=== PATIENT | male | born 1965 ===

== ENCOUNTER → 2019-01-16 21:03 | Outpatient (REF) | payer OTHER, SELFPAY ==
[2019-01-16 21:31] LABS: Add Manual Diff / Slide Review NO; Basophils Absolute Auto 0 /uL (0-100); Basophils Percent Auto 0.6 % (0-2); Eosinophils Absolute Auto 200 /uL (0-450); Eosinophils Percent Auto 3.5 % (2-4); Hematocrit 48.6 % (41-53); Hemoglobin 16.1 g/dL (13.5-17.5); Lymphocytes Absolute Auto 1100 /uL (1100-4500); Lymphocytes Percent Auto 22.7 % (25-40); Mean Corpuscular HGB Conc 33.2 % (30-36); Mean Corpuscular Hemoglobin 31.2 PG (26-34); Monocytes Absolute Auto 900 /uL (0-900); Monocytes Percent Auto 18.5 % (3-14); Neutrophils Absolute Auto 2700 /uL (1500-7000); Neutrophils Percent Auto 54.7 % (50-75); Platelet Count 160 X10^3/uL (150-400); Red Blood Cell Count 5.17 X10^6/uL (4.5-5.9); White Blood Cell Count 4.9 X10^3/uL (4.5-11.0)
[2019-01-16 21:42] LABS: Alanine Aminotransferase 36 IU/L (21-72); Albumin 4.4 g/dL (3.5-5.0); Albumin Globulin Ratio 1.5 (1.0-2.8); Alkaline Phosphatase 58 U/L (38-126); Aspartate Aminotransferase 31 IU/L (17-59); BUN Creatinine Ratio 16.7 (6-22); Bilirubin Total 0.6 mg/dL (0.2-1.3); Blood Urea Nitrogen 15 mg/dL (9-20); C-Reactive Protein Quant 2.7 mg/dL (<1.0); Calcium 9.5 mg/dL (8.4-10.2); Carbon Dioxide 29 mmol/L (22-32); Chloride 99 mmol/L (98-107); Estimated Glomerular Filt Rate > 60.0 mL/min (>60); Globulin 2.9 g/dL (1.7-4.1); Glucose 80 mg/dL (70-100); HEMOLYSIS < 15 (0-50); Sodium 139 mmol/L (137-145); Total Protein 7.3 g/dL (6.3-8.2)
[2019-01-16 22:06] LABS: Erythrocyte Sedimentation Rate 5 MM/HR (0-15)
[2019-01-16 22:12] LABS: Thyroid Stimulating Hormone 1.26 uIU/mL (0.47-4.68)
== END ==
LOC: LAB 21:03
PROVIDERS: Visit Provider Naturopath
DX: R05 Cough (principal); R53.83 Other fatigue
CPT/HCPCS: 36415; 80053; 84153; 84443; 85025; 85651; 86140